=== PATIENT | female | born 1930 | race Two or more races ===

== ENCOUNTER 2017-08-10 21:03 | Observation (INO) | payer MEDICARE, MEDICAID ==
[2017-08-10 21:17] VITALS: BMI 25.0
--- NOTE | 2017-08-10 21:29 | ED PDOC ---
Arrival/HPI - History of Present Illness Time/Duration: 4-6 hours Symptom Onset: Sudden Symptom Course: Unchanged Activities at Onset: Rest Context: Sitting, Standing <Hunter Garza - Last Filed: 08/10/17 22:28> <Pantera Polo - Last Filed: 08/10/17 22:46> - General Chief Complaint: Syncope Time Seen by Provider: 08/10/17 21:06 - History of Present Illness Narrative History of Present Illness (Text): 08/10/17 21:25 Patient is an 87M with a PMH of HTN and HLD who comes to the ED with a CC of syncope. Patient was at home for the of her close friend and neighbor when she passed out while sitting in a chair. She did not hit her head. Denies any prodromal symptoms such as diaphoresis, palpitations or an aura of anytime. Patient remained unconscious for 10-15m. She regained consciousness but was confused at that time. She was then brought outside and started to feel weak and look as if she was going to pass out again so the family called an ambulance. No prior episodes. (Hunter Garza) Past Medical History - Cardiac Hx Hypertension: Yes - Pulmonary Hx Respiratory Disorders: No - Neurological Hx Neurological Disorder: No - HEENT Hx HEENT Disorder: No - Renal Hx Renal Disorder: No - Endocrine/Metabolic Hx Endocrine Disorders: No - Hematological/Oncological Hx Blood Disorders: No - Integumentary Hx Dermatological Disorder: No - Musculoskeletal/Rheumatological Hx Musculoskeletal Disorders: No - Gastrointestinal Hx Gastrointestinal Disorders: No - Genitourinary/Gynecological Hx Genitourinary Disorders: No - Psychiatric Hx Psychophysiologic Disorder: No Hx Substance Use: No <Hunter Garza - Last Filed: 08/10/17 22:28> - Provider Review Nursing Documentation Reviewed: Yes <Pantera Polo - Last Filed: 08/10/17 22:46> Family/Social History Family/Social History: Unknown Family HX Smoking Status: Never Smoked Hx Alcohol Use: No Hx Substance Use: No <Hunter Garza - Last Filed: 08/10/17 22:28> - Physician Review Nursing Documentation Reviewed: Yes Family/Social History: Unknown Family HX <Pantera Polo - Last Filed: 08/10/17 22:46> Allergies/Home Meds <Hunter Garza - Last Filed: 08/10/17 22:28> <Pantera Polo - Last Filed: 08/10/17 22:46> Allergies/Adverse Reactions: Allergies No Known Allergies Allergy (Verified 08/10/17 21:10) Home Medications: Home Meds Medication Instructions Recorded Confirmed Losartan [Cozaar] 100 mg PO DAILY 08/10/17 08/10/17 Simvastatin [Zocor] 10 mg PO HS 08/10/17 08/10/17 amLODIPine [Norvasc] 5 mg PO DAILY 08/10/17 08/10/17 Review of Systems - Review of Systems Constitutional: Normal Eyes: Normal. absent: Vision Changes ENT: Normal Respiratory: Normal Cardiovascular: Syncope. absent: Chest Pain Gastrointestinal: absent: Abdominal Pain Musculoskeletal: Normal Skin: Normal Neurological: Dizziness. absent: Headache, Focal Weakness, Speech Changes, Facial Droop, Seizure Endocrine: absent: Diaphoresis Hemo/Lymphatic: Normal Psychiatric: Normal <GeorgescarolHunter - Last Filed: 08/10/17 22:28> Physical Exam Appearance: Positive for: Comfortable Pain Distress: None Mental Status: Positive for: Confused Finger Stick Blood Glucose: 107 - Systems Exam Head: Present: Atraumatic, Normocephalic Pupils: Present: PERRL Extroacular Muscles: Present: EOMI Conjunctiva: Present: Normal Ears: Present: Normal Mouth: Present: Moist Mucous Membranes Pharnyx: Present: Normal Neck: Present: Normal Range of Motion Respiratory/Chest: Present: Clear to Auscultation, Good Air Exchange. No: Respiratory Distress, Accessory Muscle Use Cardiovascular: Present: Regular Rate and Rhythm, Normal S1, S2. No: Murmurs Abdomen: Present: Normal Bowel Sounds. No: Tenderness, Distention, Peritoneal Signs Upper Extremity: Present: Normal Inspection. No: Cyanosis, Edema Lower Extremity: Present: Normal Inspection. No: Edema Neurological: Present: GCS=15, CN II-XII Intact, Speech Normal, Motor Func Grossly Intact, Normal Sensory Function, Normal Cerebellar Funct, Norm Deep Tendon Reflexes Skin: Present: Warm, Dry, Normal Color. No: Rashes Psychiatric: Present: Alert, Oriented x 3, Normal Insight, Normal Concentration <AudishukriHunter medina - Last Filed: 08/10/17 22:28> Vital Signs Temp Pulse Resp BP Pulse Ox 08/10/17 21:34 98.7 F 85 23 159/81 H 99 Medical Decision Making <Hunter Garza - Last Filed: 08/10/17 22:28> - Lab Interpretations I have reviewed the lab results: Yes - RAD Interpretation Time Study Statistician: ED Physician, Radiologist - EKG Interpretation Interpreted by ED Physician: Yes Type: 12 lead EKG <Pantera Polo - Last Filed: 08/10/17 22:46> ED Course and Treatment: 08/10/17 21:31 CT head, basic labs, ekg, cxr (Hunter Garza) Impression: Pt seen and evaluated with medical language specialist. Pt, whose past medical history includes hypertension and hyperlipidemia, presented s/p syncopal episodes. Aware and agree with HPI, clinical findings, plan, and management. Plan: -- CT Head w/o contrast -- EKG -- Chest X-ray -- Labs, cardiac enzymes -- Reassess and disposition 08/10/17 22:19 Case discussed with medical language specialist operations manager station, who is aware and agrees with plan. 08/10/17 22:30 08/10/17 22:[address] Littlejohn, who is aware and agrees with plan. Accepts pt in to hospitalist service. Pt will go to Telemetry observation for syncope. 08/10/17 22:46 CT Head shows: Brain: Moderate atrophy. No intracranial hemorrhage. No mass. Several scattered foci of decreased attenuation within periventricular/subcortical white matter. 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 No definite edema. Ventricles: No hydrocephalus. Bones/joints: No acute fracture. Soft tissues: Unremarkable. Vasculature: Atherosclerotic disease of intracranial arteries. Sinuses: No acute sinusitis. Mastoid air cells: No mastoid effusion. Orbits: Unremarkable as visualized. IMPRESSION: 1. Nonspecific white matter changes. Acute infarction may be CT occult within first 24 hours. If a focal deficit persists, consider followup CT or MRI for further evaluation. 2. Incidental/non-acute findings are described above. (Pantera Polo) - Lab Interpretations Lab Results: 08/10/17 21:50 08/10/17 21:50 Lab Results 08/10/17 21:50: PT 12.1, INR 1.06, APTT 30.2 08/10/17 21:50: Sodium 143, Potassium 3.9, Chloride 104, Carbon Dioxide 28, Anion Gap 15, BUN 13, Creatinine 0.8, Est GFR ( Amer) > 60, Est GFR (Non- Af Amer) > 60, Random Glucose 123 H, Calcium 10.0, Magnesium 2.5 H, Total Bilirubin 0.4, AST 26, ALT 25, Alkaline Phosphatase 77, Lactate Dehydrogenase 503, Total Creatine Kinase 77, Troponin I < 0.01, Total Protein 8.3, Albumin 4.3 , Globulin 4.0, Albumin/Globulin Ratio 1.1 08/10/17 21:50: WBC 5.6, RBC 4.44, Hgb 13.6, Hct 40.9, MCV 92.1, MCH 30.6, MCHC 33.3, RDW 13.1, Plt Count 207, MPV 11.2 H, Gran % 62.5, Lymph % (Auto) 28.4, [place] % (Auto) 7.5 H, Eos % (Auto) 0.9 L, Baso % (Auto) 0.7, Gran # 3.52, Lymph # (Auto) 1.6, [place] # (Auto) 0.4, Eos # (Auto) 0.1, Baso # (Auto) 0.04 - RAD Interpretation Radiology Orders: 08/10/17 21:10 HEAD W/O CONTRAST [CT] Stat 08/10/17 21:26 CHEST PORTABLE [RAD] Stat - PA / PYROMETER MECHANIC / Resident Statement / has reviewed & agrees with the documentation as recorded. / has examined the patient and agrees with the treatment plan. <Hunter Garza - Last Filed: 08/10/17 22:28> Disposition/Present on Arrival - Present on Arrival Any Indicators Present on Arrival: No History of DVT/PE: No History of Uncontrolled Diabetes: No Urinary Catheter: No History of Decub. Ulcer: No History Surgical Site Infection Following: None - Disposition Have Diagnosis and Disposition been Completed?: Yes Disposition Time: 22:29 Patient Plan: Admission <Hunter Garza - Last Filed: 08/10/17 22:28> <Pantera Polo - Last Filed: 08/10/17 22:46> - Disposition Diagnosis: Syncope Disposition: HOSPITALIZED Patient Problems: Current Active Problems Problem Status Onset Syncope Acute Condition: GUARDED
[2017-08-10 22:01] LABS: BASO # 0.04 K/mm3 (0.0-2.0); BASO % 0.7 % (0.0-3.0); EOS # 0.1 (0.0-0.7); EOS % 0.9 % (1.5-5.0); GRAN # 3.52 (1.4-6.5); GRAN % 62.5 % (50.0-68.0); HEMOGLOBIN 13.6 g/dL (12.0-16.0); LYMPH # 1.6 (1.2-3.4); LYMPH % 28.4 % (22.0-35.0); MEAN CELL VOLUME 92.1 fl (80.0-105.0); MEAN CORPUSCULAR HEMOGLOBIN 30.6 pg (25.0-35.0); MEAN CORPUSCULAR HGB CONC 33.3 g/dl (31.0-37.0); MEAN PLATELET VOLUME 11.2 fl (7.0-11.0); MONO # 0.4 (0.1-0.6); MONO % 7.5 % (1.0-6.0); RBC 4.44 10^6/uL (3.5-6.1); RED CELL DISTRIBUTION WIDTH 13.1 % (11.5-14.5); WHITE BLOOD COUNT 5.6 10^3/ul (4.5-11.0)
[2017-08-10 22:12] LABS: ALB/GLOB RATIO 1.1 (1.1-1.8); ALBUMIN 4.3 g/dL (3.0-4.8); ALT/SGPT 25 U/L (7-56); AST/SGOT 26 U/L (14-36); BLOOD UREA NITROGEN 13 mg/dL (7-21); GFR AFRICAN-AMERICAN > 60; GFR NON-AFRICAN AMERICAN > 60
[2017-08-10 22:22] LABS: INR 1.06 (0.93-1.08); PARTIAL THROMBOPLASTIN TIME 30.2 Seconds (25.1-36.5); PROTHROMBIN TIME 12.1 SECONDS (9.4-12.5)
[2017-08-10 22:23] LABS: TROPONIN I < 0.01 ng/mL
--- NOTE | 2017-08-10 22:43 | CT ---
EXAM: CT Head Without Intravenous Contrast CLINICAL HISTORY: 87 years old, female; Signs and symptoms; Syncope and collapse TECHNIQUE: Axial computed tomography images of the head/brain without intravenous contrast. All CT scans at this facility use one or more dose reduction techniques, viz.: automated exposure control; ma/kV adjustment per patient size (including targeted exams where dose is matched to indication; i.e. head); or iterative reconstruction technique. Coronal and sagittal reformatted images were created and reviewed. COMPARISON: No relevant prior studies available. FINDINGS: Brain: Moderate atrophy. No intracranial hemorrhage. No mass. Several scattered foci of decreased attenuation within periventricular/subcortical white matter. 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 No definite edema. Ventricles: No hydrocephalus. Bones/joints: No acute fracture. Soft tissues: Unremarkable. Vasculature: Atherosclerotic disease of intracranial arteries. Sinuses: No acute sinusitis. Mastoid air cells: No mastoid effusion. Orbits: Unremarkable as visualized. IMPRESSION: 1. Nonspecific white matter changes. Acute infarction may be CT occult within first 24 hours. If a focal deficit persists, consider followup CT or MRI for further evaluation. 2. Incidental/non-acute findings are described above.
--- NOTE | 2017-08-10 23:02 | CP.PCM.HP ---
<Franki Wagner - Last Filed: 08/11/17 00:57> History of Present Illness - History of Present Illness History of Present Illness: Chief Complaint: Syncopal episode at HPI: Patient is an 87 year old female with a history of hypertension and hyperlipidemia who presents with complaints of syncopal episode during this evening. As per patient and family members the home at the time was crowded and extremely hot. As per patient's daughter patient was sitting when she suddenly passed out remaining in a seated position without hitting her head. Attempts to try awake patient included throwing water, and softly hitting patient in face; which were unsuccessful at first. Patient eventually awoke within 15-20 minutes agitated. Due to this being the first time patient has experienced this, family decided to bring her to the ED for further work up. Admits to chronic back pain which she normally takes tylenol for. Patient currently denies dizziness, headache, vision changes, tinnitus, urinary/bowel incontinence, nausea, vomiting, diarrhea, fevers, chills, chest pain, shortness of breath. PMD: Dr. Ybarra ([place]) PMH: Hypertension, Hyperlipidemia PSHx: denies FHx: non contributory Medications: Norvasc 5 mg qD,Losartan 100mg QD, simvastatin 10mg qHS. Patient is compliant with her medications as per patient and family members Social Hx: Patient is taken care of by her children who monitor her blood pressure and administer medications. Patient is coming from [place], [place]. Allergies: NKDA CT head: Moderate atrophy. No intracranial hemorrhage. No mass. Several scattered foci of decreased attenuation within periventricular/subcortical white matter. 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 No definite edema. CXR: B/L hilar LAD?, blunting of CV angles B/L. Prominent aortic knob; calcifications. Pulmonary Nodule? Pending official read. Labs: WBC 5.6, H&H 13.6 and 40.9, Sodium 143, Potasium 3.9, Chloride 104, Bicarb 28, BUN 13, Cr 0.8, Glucose 123, Phos 4.6, Mg 2.5, Troponin <0.01, BNP 104, TSH 4.47 Present on Admission - Present on Admission Any Indicators Present on Admission: No Review of Systems - Constitutional Constitutional: absent: Chills, Fever, Headache - EENT Eyes: absent: Blurred Vision, Change in Vision Ears: absent: Tinnitus, Dizziness Nose/Mouth/Throat: absent: Nasal Congestion, Sore Throat - Cardiovascular Cardiovascular: absent: Chest Pain, Dyspnea - Respiratory Respiratory: absent: Cough, Dyspnea - Gastrointestinal Gastrointestinal: absent: Abdominal Pain, Diarrhea, Nausea, Vomiting - Genitourinary Genitourinary: absent: Difficulty Urinating, Dysuria - Musculoskeletal Musculoskeletal: Back Pain - Neurological Neurological: Syncope. absent: Abnormal Hearing, Confusion, Dizziness, Numbness , Headaches, Loss of Vision - Psychiatric Psychiatric: absent: Anxiety, Behavioral Changes Past Patient History - Past Social History Smoking Status: Never Smoked - CARDIAC Hx Hypertension: Yes - PULMONARY Hx Respiratory Disorders: No - NEUROLOGICAL Hx Neurological Disorder: No - HEENT Hx HEENT Problems: No - RENAL Hx Chronic Kidney Disease: No - ENDOCRINE/METABOLIC Hx Endocrine Disorders: No - HEMATOLOGICAL/ONCOLOGICAL Hx Blood Disorders: No - INTEGUMENTARY Hx Dermatological Problems: No - MUSCULOSKELETAL/RHEUMATOLOGICAL Hx Musculoskeletal Disorders: No - GASTROINTESTINAL Hx Gastrointestinal Disorders: No - GENITOURINARY/GYNECOLOGICAL Hx Genitourinary Disorders: No - PSYCHIATRIC Hx Psychophysiologic Disorder: No Hx Substance Use: No - SURGICAL HISTORY Hx Surgeries: No Meds Allergies/Adverse Reactions: Allergies Allergy/AdvReac Type Severity Reaction Status Date / Time No Known Allergies Allergy Verified 08/10/17 21:10 Physical Exam - Head Exam Head Exam: ATRAUMATIC, NORMAL INSPECTION, NORMOCEPHALIC - Eye Exam Eye Exam: EOMI, Normal appearance - ENT Exam ENT Exam: Mucous Membranes Moist, Normal Exam - Neck Exam Neck exam: Positive for: Normal Inspection - Respiratory Exam Respiratory Exam: Clear to Auscultation Bilateral, NORMAL BREATHING PATTERN. absent: Rhonchi, Wheezes - Cardiovascular Exam Cardiovascular Exam: REGULAR RHYTHM, +S1, +S2 - GI/Abdominal Exam GI & Abdominal Exam: Normal Bowel Sounds, Soft - Neurological Exam Neurological exam: Alert, CN II-XII Intact, Oriented x3 - Expanded Neurological Exam Expanded Patient oriented to: person, place, time Speech: Fluid Speech Cranial nerves: EOM's Intact: Normal, Facial Sensation: Normal, Tongue Deviation : Normal Cerebellar Function: Finger to Nose: Normal, Heel to [place]: Normal Neuro motor strength exam: Left Upper Extremity: 5, Right Upper Extremity: 5, Left Lower Extremity: 5, Right Lower Extremity: 5 - Psychiatric Exam Psychiatric exam: Normal Affect, Normal Mood - Skin Skin Exam: Intact, Normal Color, Warm Results - Vital Signs Recent Vital Signs: Last Vital Signs Temp 98.7 F 08/10/17 21:34 Pulse 85 08/10/17 21:34 Resp 23 08/10/17 21:34 BP 159/81 H 08/10/17 21:34 Pulse Ox 99 08/10/17 21:34 - Labs Result Diagrams: 08/10/17 21:50 08/10/17 21:50 Assessment & Plan - Assessment and Plan (Free Text) Assessment: 87 year old female with history of hypertension and hyperlipidemia presenting for syncopal episode Plan: Syncope DDX: Dehydration vs. Cardiac vs. Neurological etiology -NS@100 -Cardiology consult; Dr. Sherman -Echocadiogram ordered; results pending -EKG NSR -Lipid panel ordered; results pending -HgA1c ordered; results pending -Continue with home statin in AM -Neurology consult; Dr. Cee -Carotid duplex US ordered; results pending -NPO except medications -Seizure, aspiration, fall precautions -Swallow evaluation; patient passed nursing bedside swallow evaluation Hypertension -Patient took medications today -Continue to monitor BP -Restart home medications in morning (Norvasc and Losartan) Hyperlipidemia -Continue with statin DVT/GI prophylaxis: SCDs for now, can start heparin pending further neurological workup/Protonix <Claudette Littlejohn - Last Filed: 08/11/17 06:50> Results - Vital Signs Recent Vital Signs: Last Vital Signs Temp 98.4 F 08/11/17 06:00 Pulse 63 08/11/17 06:00 Resp 20 08/11/17 06:00 BP 128/72 08/11/17 06:00 Pulse Ox 96 08/11/17 06:00 - Labs Result Diagrams: 08/11/17 03:15 08/11/17 03:15 Labs: Laboratory Results - last 24 hr 08/10/17 08/11/17 08/11/17 23:30 03:15 03:15 WBC 6.4 RBC 4.10 Hgb 12.1 Hct 37.6 MCV 91.7 MCH 29.5 MCHC 32.2 RDW 13.0 Plt Count 189 MPV 10.8 Gran % 56.5 Lymph % (Auto) 33.7 [place] % (Auto) 8.7 H Eos % (Auto) 0.6 L Baso % (Auto) 0.5 Gran # 3.63 Lymph # (Auto) 2.2 [place] # (Auto) 0.6 Eos # (Auto) 0.0 Baso # (Auto) 0.03 Sodium 142 Potassium 4.1 Chloride 106 Carbon Dioxide 30 Anion Gap 11 BUN 12 Creatinine 0.8 Est GFR ( Amer) > 60 Est GFR (Non-Af Amer) > 60 Random Glucose 102 Calcium 9.4 Phosphorus 4.6 H Magnesium 2.4 H Total Bilirubin 0.5 AST 43 H D ALT 21 Alkaline Phosphatase 65 Troponin I < 0.01 NT-Pro-B Natriuret Pep 104 Total Protein 7.0 Albumin 3.7 Globulin 3.4 Albumin/Globulin Ratio 1.1 Triglycerides 119 Cholesterol 166 LDL Cholesterol Direct 99 HDL Cholesterol 40 Attending/Attestation - Attestation I have personally seen and examined this patient.: Yes I have fully participated in the care of the patient.: Yes I have reviewed all pertinent clinical information: Yes Notes (Text): 08/11/17 06:49 Patient was seen when she was in . Two daughters present. Medical record was reviewed. Agree with history ,physical examination, assessment and plan.
[2017-08-11] MEDS: Sodium Chloride 0.9% 1,000 ML IV SCH ×3 (00:30→20:34)
[2017-08-11 03:37] LABS: BASO # 0.03 K/mm3 (0.0-2.0); BASO % 0.5 % (0.0-3.0); EOS % 0.6 % (1.5-5.0); GRAN # 3.63 (1.4-6.5); GRAN % 56.5 % (50.0-68.0); HEMOGLOBIN 12.1 g/dL (12.0-16.0); LYMPH # 2.2 (1.2-3.4); LYMPH % 33.7 % (22.0-35.0); MEAN CELL VOLUME 91.7 fl (80.0-105.0); MEAN CORPUSCULAR HEMOGLOBIN 29.5 pg (25.0-35.0); MEAN CORPUSCULAR HGB CONC 32.2 g/dl (31.0-37.0); MEAN PLATELET VOLUME 10.8 fl (7.0-11.0); MONO # 0.6 (0.1-0.6); MONO % 8.7 % (1.0-6.0); RBC 4.1 10^6/uL (3.5-6.1); WHITE BLOOD COUNT 6.4 10^3/ul (4.5-11.0)
[2017-08-11 04:01] LABS: LDL CHOLESTEROL 99 mg/dL (0-129); TROPONIN I < 0.01 ng/mL
[2017-08-11 04:28] LABS: ALB/GLOB RATIO 1.1 (1.1-1.8); ALBUMIN 3.7 g/dL (3.0-4.8); ALT/SGPT 21 U/L (7-56); AST/SGOT 43 U/L (14-36); BLOOD UREA NITROGEN 12 mg/dL (7-21); CALCIUM 9.4 mg/dL (8.4-10.5); GFR AFRICAN-AMERICAN > 60; GFR NON-AFRICAN AMERICAN > 60; HDL CHOLESTEROL 40 mg/dL (29-60)
[2017-08-11] MEDS: Pantoprazole 40 mg EC Tab PO SCH (05:41)
--- NOTE | 2017-08-11 09:00 | RAD ---
HISTORY: syncope COMPARISON: No prior. FINDINGS: LUNGS: No acute infiltrate identified bilaterally. Calcified granuloma seen the inferior right lung zone laterally calcified lymph nodes are granulomata in the left hilar region. PLEURA: No significant pleural effusion identified, no pneumothorax apparent. CARDIOVASCULAR: Normal. OSSEOUS STRUCTURES: No significant abnormalities. VISUALIZED UPPER ABDOMEN: Normal. OTHER FINDINGS: None. IMPRESSION: No acute cardiopulmonary disease appreciated.
--- NOTE | 2017-08-11 19:11 | CP.PCM.CON ---
History of Present Illness - History of Present Illness History of Present Illness: Mrs. Love is an 87-year-old woman with a past medical history of HTN, HLD, who had a syncopal episode while she was sitting down at a last night. As per patient and family members the home at the time was crowded and extremely hot. She was unconscious for about 7-10 minutes and when she woke up, she did not have any urinary/bowel incontinence or tongue biting. She is now back to her baseline without any further complaints. CT scan of the head did not show any acute findings. Vital signs have been normal. Review of Systems - Review of Systems All systems: reviewed and no additional remarkable complaints except Past Patient History - Past Social History Smoking Status: Never Smoked - CARDIAC Hx Hypertension: Yes - PULMONARY Hx Respiratory Disorders: No - NEUROLOGICAL Hx Neurological Disorder: No - HEENT Hx HEENT Problems: No - RENAL Hx Chronic Kidney Disease: No - ENDOCRINE/METABOLIC Hx Endocrine Disorders: No - HEMATOLOGICAL/ONCOLOGICAL Hx Blood Disorders: No - INTEGUMENTARY Hx Dermatological Problems: No - MUSCULOSKELETAL/RHEUMATOLOGICAL Hx Musculoskeletal Disorders: No - GASTROINTESTINAL Hx Gastrointestinal Disorders: No - GENITOURINARY/GYNECOLOGICAL Hx Genitourinary Disorders: No - PSYCHIATRIC Hx Psychophysiologic Disorder: No Hx Substance Use: No - SURGICAL HISTORY Hx Surgeries: No Meds Allergies/Adverse Reactions: Allergies Allergy/AdvReac Type Severity Reaction Status Date / Time No Known Allergies Allergy Verified 08/10/17 21:10 - Medications Medications: Current Medications Acetaminophen (Tylenol 325mg Tab) 650 mg PO Q6H PRN PRN Reason: Pain, moderate (4-7) Amlodipine Besylate (Norvasc) 5 mg PO DAILY [facility] Last Admin: 08/11/17 10:13 Dose: 5 mg Atorvastatin Calcium (Lipitor) 10 mg PO HS [facility] Sodium Chloride (Sodium Chloride 0.9%) 1,000 mls @ 100 mls/hr IV .Q10H [facility] Last Admin: 08/11/17 10:15 Dose: 100 mls/hr Losartan Potassium (Cozaar) 100 mg PO DAILY [facility] Last Admin: 08/11/17 10:14 Dose: 100 mg Meclizine HCl (Antivert) 12.5 mg PO Q6H PRN PRN Reason: Dizziness Ondansetron HCl (Zofran Tab) 2 mg PO Q8H PRN PRN Reason: Nausea/Vomiting Pantoprazole Sodium (Protonix Ec Tab) 40 mg PO 0600 [facility] Last Admin: 08/11/17 05:41 Dose: 40 mg Physical Exam - Constitutional Appears: Well - Head Exam Head Exam: ATRAUMATIC, NORMAL INSPECTION, NORMOCEPHALIC - Eye Exam Eye Exam: EOMI, Normal appearance, PERRL - ENT Exam ENT Exam: Mucous Membranes Moist, Normal Exam - Respiratory Exam Respiratory Exam: Clear to Auscultation Bilateral, NORMAL BREATHING PATTERN - Cardiovascular Exam Cardiovascular Exam: REGULAR RHYTHM - GI/Abdominal Exam GI & Abdominal Exam: Normal Bowel Sounds, Soft. absent: Tenderness - Rectal Exam Rectal Exam: Deferred - Neurological Exam Neurological exam: Alert, CN II-XII Intact, Normal Gait, Oriented x3, Reflexes Normal - Psychiatric Exam Psychiatric exam: Normal Affect, Normal Mood Results - Vital Signs Recent Vital Signs: Last Vital Signs Temp 97.7 F 08/11/17 18:00 Pulse 78 08/11/17 18:00 Resp 16 08/11/17 18:00 BP 110/69 08/11/17 18:00 Pulse Ox 96 08/11/17 06:00 - Labs Result Diagrams: 08/11/17 03:15 08/11/17 03:15 Labs: Laboratory Results - last 24 hr 08/10/17 08/11/17 08/11/17 23:30 03:15 03:15 WBC 6.4 RBC 4.10 Hgb 12.1 Hct 37.6 MCV 91.7 MCH 29.5 MCHC 32.2 RDW 13.0 Plt Count 189 MPV 10.8 Gran % 56.5 Lymph % (Auto) 33.7 [place] % (Auto) 8.7 H Eos % (Auto) 0.6 L Baso % (Auto) 0.5 Gran # 3.63 Lymph # (Auto) 2.2 [place] # (Auto) 0.6 Eos # (Auto) 0.0 Baso # (Auto) 0.03 Sodium 142 Potassium 4.1 Chloride 106 Carbon Dioxide 30 Anion Gap 11 BUN 12 Creatinine 0.8 Est GFR ( Amer) > 60 Est GFR (Non-Af Amer) > 60 Random Glucose 102 Calcium 9.4 Phosphorus 4.6 H Magnesium 2.4 H Total Bilirubin 0.5 AST 43 H D ALT 21 Alkaline Phosphatase 65 Troponin I < 0.01 NT-Pro-B Natriuret Pep 104 Total Protein 7.0 Albumin 3.7 Globulin 3.4 Albumin/Globulin Ratio 1.1 Triglycerides 119 Cholesterol 166 LDL Cholesterol Direct 99 HDL Cholesterol 40 08/11/17 08:50 WBC RBC Hgb Hct MCV MCH MCHC RDW Plt Count MPV Gran % Lymph % (Auto) [place] % (Auto) Eos % (Auto) Baso % (Auto) Gran # Lymph # (Auto) [place] # (Auto) Eos # (Auto) Baso # (Auto) Sodium Potassium Chloride Carbon Dioxide Anion Gap BUN Creatinine Est GFR ( Amer) Est GFR (Non-Af Amer) Random Glucose Calcium Phosphorus Magnesium Total Bilirubin AST ALT Alkaline Phosphatase Troponin I < 0.01 NT-Pro-B Natriuret Pep Total Protein Albumin Globulin Albumin/Globulin Ratio Triglycerides Cholesterol LDL Cholesterol Direct HDL Cholesterol Assessment & Plan (1) Syncope Assessment and Plan: Based on the history, the patient likely had vaso-vagal, or neurocardiogenic syncope. Currently, she is back to baseline. CT scan of the head was done and is normal. Carotid dopplers were done, and report is pending. Further testing may be done as an outpatient from a neurological standpoint, if needed. Otherwise, she is cleared for discharge since no other tests are needed at this time. I recommended hydration with 2-3 liters of water daily. Continue home medications. Thank you. Status: Acute Priority: High
[2017-08-11 22:56] VITALS: RESP 20
--- NOTE | 2017-08-11 23:19 | CARD ---
APPROVED REPORT EKG Measurement Heart [id number] <Conclusion> Normal sinus rhythm Normal ECG
[2017-08-12] MEDS: Sodium Chloride 0.9% 1,000 ML IV SCH ×2 (02:14→04:48)
[2017-08-12] MEDS: Pantoprazole 40 mg EC Tab PO SCH (05:25)
[2017-08-12 06:31] LABS: BASO # 0.05 K/mm3 (0.0-2.0); BASO % 0.9 % (0.0-3.0); EOS # 0.1 (0.0-0.7); EOS % 0.9 % (1.5-5.0); GRAN # 2.9 (1.4-6.5); GRAN % 53.3 % (50.0-68.0); HEMOGLOBIN 12.2 g/dL (12.0-16.0); LYMPH # 1.9 (1.2-3.4); LYMPH % 35.4 % (22.0-35.0); MEAN CELL VOLUME 92.1 fl (80.0-105.0); MEAN CORPUSCULAR HEMOGLOBIN 30.2 pg (25.0-35.0); MEAN CORPUSCULAR HGB CONC 32.8 g/dl (31.0-37.0); MEAN PLATELET VOLUME 11.2 fl (7.0-11.0); MONO # 0.5 (0.1-0.6); MONO % 9.5 % (1.0-6.0); RBC 4.04 10^6/uL (3.5-6.1); RED CELL DISTRIBUTION WIDTH 12.9 % (11.5-14.5); WHITE BLOOD COUNT 5.5 10^3/ul (4.5-11.0)
[2017-08-12 06:56] LABS: ALBUMIN 3.4 g/dL (3.0-4.8); ALT/SGPT 25 U/L (7-56); AST/SGOT 27 U/L (14-36); BLOOD UREA NITROGEN 16 mg/dL (7-21); CALCIUM 9.4 mg/dL (8.4-10.5); GFR AFRICAN-AMERICAN > 60; GFR NON-AFRICAN AMERICAN 59
--- NOTE | 2017-08-12 09:22 | US ---
PROCEDURE: Bilateral carotid artery duplex ultrasound HISTORY: Carotid stenosis PHYSICIAN(S): Maverick Hernandez MD. TECHNIQUE: Duplex sonography and color-flow Doppler were used to evaluate the carotid bifurcations and limited segments of the vertebral arteries bilaterally. FINDINGS: The exam is limited by tortuous vessels P There is mild to moderate smooth heterogeneous echogenic plaque noted at the carotid bifurcations bilaterally. The peak systolic velocity in the proximal right internal carotid artery is 60 cm/sec. This corresponds to a 20 to 39% proximal right ICA stenosis. Normal systolic velocities are noted in the proximal right external carotid artery. There is antegrade flow in the right vertebral artery. The origin the left ICA is somewhat obscured by shadowing plaque. The peak systolic velocity in the proximal left internal carotid artery is 89 cm/sec. This corresponds to a 20 to 39% proximal left ICA stenosis. Normal systolic velocities are noted in the proximal left external carotid artery. There is antegrade flow in the left vertebral artery. IMPRESSION: 1. Bilateral 20-39% proximal ICA stenoses. 2. Antegrade flow in both vertebral arteries.
--- NOTE | 2017-08-12 10:16 | CT ---
PROCEDURE: CT Angiography of the neck with contrast HISTORY: syncope COMPARISON: Doppler ultrasound 08/11/2017. That study showed bilateral 28 at 39 percent proximal ICA stenosis TECHNIQUE: Contiguous axial images of the neck were obtained from the level of the skull-base to the superior mediastinum in the arteriographic phase of enhancement. Coronal and sagittal reformats or also generated. IV contrast dose: 150 cc of Omni 350 Radiation Dose - DLP: 465 mGy-cm This CT exam was performed using one or more of the following dose reduction techniques: Automated exposure control, adjustment of the mA and/or kV according to patient size, and/or use of iterative reconstruction technique. FINDINGS: RIGHT CAROTID ARTERIES: There is a small amount a calcified plaque in the carotid bifurcation. There is no stenosis LEFT CAROTID ARTERIES: There is a heavily calcified plaque in the carotid bifurcation. There is a mild degree of stenosis VERTEBRAL ARTERIES: Right Vertebral Artery: Normal. Left Vertebral Artery: Normal. OTHER FINDINGS: None. IMPRESSION: Calcified plaque in both carotid bifurcations left greater than right. No significant stenosis CT Angiography of the Brain. HISTORY: syncope COMPARISON: None available. TECHNIQUE: CT angiography of the intracranial arteries was performed. Coronal and sagittal maximum intensity projection reformated images were generated. This CT exam was performed using one or more of the following dose reduction techniques: Automated exposure control, adjustment of the mA and/or kV according to patient size, and/or use of iterative reconstruction technique. FINDINGS: INTERNAL CEREBRAL ARTERIES: Unremarkable. The skull base, petrous, cavernous and supraclinoid segments are bilaterally widely patent. ANTERIOR CEREBRAL ARTERIES: Unremarkable. A1 and A2 segments are widely patent. Smaller distal branches unremarkable, as visualized. MIDDLE CEREBRAL ARTERIES: Unremarkable. M1 and M2 segments are widely patent. Perisylvian branches grossly symmetric. POSTERIOR CIRCULATION: Basilar Artery: Unremarkable. Distal Vertebral Arteries: Unremarkable. Posterior Cerebral Arteries: Unremarkable. Posterior Inferior Cerebellar Arteries: Unremarkable. 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 This measures 5.8 mm in diameter. The finding is best seen on image 15 series 604 and sagittal image 36 series 605. 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 OTHER FINDINGS: None. 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 This measures 5.8 mm in diameter. . 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
--- NOTE | 2017-08-12 16:59 | CARD ---
APPROVED REPORT EXAM: Two-dimensional and M-mode echocardiogram with Doppler and color Doppler. 2D DIMENSIONS Left Atrium (2D)3.6 (1.6-4.0cm)IVSd0.8 (0.7-1.1cm) LVDd3.7 (3.9-5.9cm)LVOT Diameter1.8 (1.8-2.4cm) PWd0.9 (0.7-1.1cm)LVDs2.5 (2.5-4.0cm) FS (%) 32.3 %LVEF (%)61.3 (>50%) M-Mode DIMENSIONS Aortic Root3.00 (2.2-3.7cm)Aortic Cusp Exc.1.20 (1.5-2.0cm) Aortic Valve AoV Peak Kphoudhj329.0cm/sAoV VTI47.3cmAO Peak GR.20mmHg LVOT Peak Srhkkosk860.0cm/sLVOT VTI28.20cmAO Mean GR.11mmHg EDWARD (VMAX)1.87us7OIC (VTI)1.51cm2 Mitral Valve MV E Vvjucouh08.1cm/sMV A Zezdlqcl18.3cm/sE/A ratio0.7 TDI Lateral E' Peak V11.80cm/sMedial E' Peak V9.16cm/sE/Lateral E'5.2 E/Medial E'6.7 Pulmonary Valve PV Peak Tfrxkwap84.5cm/sPV Peak Grad.2mmHg Tricuspid Valve TR Peak Uqqhmjku977mm/sRAP [id number] Peak Gr.22mmHg [id number] LEFT VENTRICLE The left ventricle is normal size. There is normal left ventricular wall thickness. The left ventricular function is normal.EF-60-65% There is normal LV segmental wall motion. Transmitral Doppler flow pattern is Grade III-reversible restrictive diastolic dysfunction. There is no ventricular septal defect visualized. There is no left ventricular aneurysm. There is no mass noted in the left ventricle. RIGHT VENTRICLE The right ventricle is normal size. There is normal right ventricular wall thickness. The right ventricular systolic function is normal. ATRIA The left atrium size is normal. The right atrium size is normal. The interatrial septum is intact with no evidence for an atrial septal defect. AORTIC VALVE The aortic valve is thickened but opens well. There is trace aortic regurgitation. There is mild valvular aortic stenosis Vs Aortic sclerosis. There is no aortic valvular vegetation. MITRAL VALVE The mitral valve is thickened but opens well. Mitral annular calcification is mild. Mitral regurgitation is trace. There is no mitral valve stenosis. There is no evidence of mitral valve prolapse. TRICUSPID VALVE The tricuspid valve leaflets are thickened , but open well. There is trace tricuspid regurgitation.RVSP-32 mmof hg. There is no tricuspid valve stenosis. There is no tricuspid valve prolapse or vegetation. PULMONIC VALVE The pulmonic valve is not well visualized. There is no pulmonic valvular regurgitation. There is no pulmonic valvular stenosis. GREAT VESSELS The aortic root is normal in size. The ascending aorta is normal in size. The pulmonary artery is normal. The IVC is normal in size and collapses >50% with inspiration. PERICARDIAL EFFUSION There is no pleural effusion. There is no pericardial effusion. <Conclusion> Normal chamber Size. EF-60-65% There is trace aortic regurgitation. There is mild valvular aortic stenosis Vs Aortic sclerosis. Mitral regurgitation is trace. There is trace tricuspid regurgitation.RVSP-32 mmof hg. The IVC is normal in size and collapses >50% with inspiration. There is no pericardial effusion.
[2017-08-12 17:15] VITALS: BP 152/79; PULSE 78; TEMP 97.6; O2SAT 98
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
== END 2017-08-12 18:02 | disposition home or self-care (01) ==
LOC: EDSEX → ED 21:03 → ERH 22:29 → 2RNO 23:21
PROVIDERS: ADMIT Internal Medicine; ATTEND Hospitalist
DX: R55 Syncope and collapse (principal); I10 Essential (primary) hypertension; E78.5 Hyperlipidemia, unspecified; G89.29 Other chronic pain; M54.9 Dorsalgia, unspecified; E11.9 Type 2 diabetes mellitus without complications
CPT/HCPCS: 36415; 70450; 70496; 70498; 71045; 80053; 80061; 82550; 83615; 83735; 83880; 84100; 84443; 84484; 85025; 85610; 85730; 93005; 93306; 93880; 97116; 97161; 99285; G0378; G8978; G8979; G8980; J7040; Q9967